=== PATIENT | female | born 1985 | race Two or more races ===

== ENCOUNTER 2023-10-13 06:15 | Day surgery (SDC) | payer MEDICAID ==
[2023-10-11 14:31] LABS: Urine Epithelial Cast None Seen /hpf (<5)
[2023-10-11 14:41] LABS: Basophils # (auto) 0 10 ^3/uL (0-0.2); Basophils % (auto) 0.6 % (0.0-2.0); Eosinophils # (auto) 0.1 10 ^3/uL (0-0.8); Eosinophils % (auto) 1.8 % (0.0-7.0); Hemoglobin 11.8 g/dL (12.2-16.2); Lymphocytes # (auto) 1.5 10 ^3/uL (0.4-5.4); Lymphocytes % (auto) 29.3 % (10.0-50.0); Mean Corpuscular Hemoglobin 28.4 pg (28.0-32.0); Mean Corpuscular Hgb Conc. 33.8 g/dL (32.0-36.0); Monocytes # (auto) 0.4 10 ^3/uL (0-1.3); Monocytes % (auto) 8.4 % (0.0-12.0); Neutrophils # (auto) 3.2 10 ^3/uL (1.6-8.6); Neutrophils % (auto) 59.9 % (37.0-80.0); Red Blood Cells 4.17 10^6/uL (4.0-5.20); Red Cell Distribution Width 14.9 % (11.8-14.3); White Blood Cell 5.3 10^3/uL (4.4-10.8)
[2023-10-11 14:53] LABS: Urine Bacteria NONE SEEN /hpf (None Seen); Urine Blood Negative /uL (Negative); Urine Clarity HAZY (Clear); Urine Color Yellow (Yellow); Urine Mucus FEW (None Seen); Urine Protein, UAD Negative (Negative); Urine Urobilinogen Normal (Negative); Urine WBC 4 /hpf (0 - 5); Urine pH 6.5 (5.0-8.0)
[2023-10-11 14:59] LABS: INR 0.98 (0.9-1.15); Partial Thromboplastin Time 26.8 SEC (24.5-34.5); Prothrombin Time 10.3 sec (9.3-11.8)
[2023-10-11 15:21] LABS: Alanine Aminotransferase 74 U/L (7-40); Albumin 4.5 g/dL (3.2-4.8); Alkaline Phosphatase 56 U/L (46-116); Anion Gap 8 (5-15); Aspartate Aminotransferase 23 U/L (13-40); Blood Urea Nitrogen 7 mg/dL (9-23); Calcium 9.1 mg/dL (8.7-10.4); Carbon Dioxide 23 mmol/L (20-30); Chloride 108 mmol/L (98-107); Glucose 98 mg/dL (74-106); Potassium 3.8 mmol/L (3.5-5.1); Sodium 139 mmol/L (136-145)
[2023-10-11 15:22] LABS: Bilirubin, Total 0.3 mg/dL (0.2-1.0); Total Protein 7.3 g/dL (5.7-8.2)
[~2023-10-13] VITALS: Ht 160 cm; Wt 89.8 kg
[~2023-10-13 06:15] MED LIST: BIOTPOW17 XX; FERR1TAB36 PO
[2023-10-13] MEDS ORDERED: ceFAZolin 2 GM/D5W100ml 100 ML IV ONE (06:31)
[2023-10-13 08:37] VITALS: TEMP 97; O2SAT 99
[2023-10-13] MEDS ORDERED: MIDAZOLAM HCL 2MG/2ML 2ml VIAL (1mg/ml) ONE (08:37)
[2023-10-13] MEDS ORDERED: LIDOCAINE 2% (LOCAL ANESTH.) PF 5ml SDV ONE (08:37)
[2023-10-13] MEDS ORDERED: PROPOFOL 10 MG/ML 20 ML IV ONE (08:37)
[2023-10-13] MEDS ORDERED: IBUP-1456 PO (08:37)
[2023-10-13] MEDS ORDERED: KETOROLAC TROMETH 30 MG/ML 1ML VIAL ONE (08:37)
[2023-10-13] MEDS ORDERED: ONDANSETRON HCL 4 MG/2 ML VIAL ONE (08:37)
[2023-10-13] MEDS ORDERED: DexAMETHasone SOD PHOS 10MG/1ML VIAL INJ ONE (08:37)
[2023-10-13] MEDS ORDERED: MEPERIDINE HCL (50 MG/ML) 1 ML VIAL ONE (08:37)
[2023-10-13] MEDS ORDERED: fentaNYL CITRATE 100 MCG/2 ML VL ONE (08:37)
[2023-10-13] MEDS ORDERED: LIDOCAINE W/ EPINEPHRINE 2% INJ 20ML VIAL ONE (08:37)
[2023-10-13] MEDS ORDERED: ePHEDrine SULFATE 50 MG/ML AMP ONE (08:37)
[2023-10-13] MEDS ORDERED: GLYCOPYRROLATE 0.2 MG/ML 1ML VIAL ONE (08:37)
[2023-10-13] MEDS ORDERED: HYDROmorphone HCL 2 MG/ML VL/or syr IV PRN (08:45)
[2023-10-13] MEDS ORDERED: ONDANSETRON HCL 4 MG/2 ML VIAL IV PRN (08:45)
[2023-10-13 09:30] VITALS: BP 153/92; PULSE 77; RESP 12; O2SAT 99
== END 2023-10-13 09:42 | disposition home or self-care (01) ==
LOC: SUR 06:15
PROVIDERS: ATTEND Obstetrics & Gynecology
DX: N92.0 Excessive and frequent menstruation with regular cycle (principal); N84.0 Polyp of corpus uteri; N90.89 Other specified noninflammatory disorders of vulva and perineum; E03.9 Hypothyroidism, unspecified; Z79.1 Long term (current) use of non-steroidal anti-inflammatories (NSAID); Z98.51 Tubal ligation status; Z98.890 Other specified postprocedural states
CPT/HCPCS: 11200; 36415; 58563; 80053; 81001; 81025; 84702; 85025; 85610; 85730; 86850; 86900; 86901; 88305; J1100; J1885; J2001; J2175; J2250; J2405; J2704; J3010

== ENCOUNTER → 2024-11-20 | Outpatient (CLI) | payer MEDICAID ==
[~2024-11-20] MED LIST changes: +IBUP-1456 PO
[2024-11-20 08:57] LABS: Urine Bacteria None Seen /hpf (None Seen)
[2024-11-20 10:13] LABS: Basophils # (auto) 0 10 ^3/uL (0-0.2); Basophils % (auto) 0.4 % (0.0-2.0); Eosinophils # (auto) 0.1 10 ^3/uL (0-0.8); Eosinophils % (auto) 1.8 % (0.0-7.0); Hematocrit 39.2 % (36.0-46.0); Hemoglobin 13.1 g/dL (12.2-16.2); Lymphocytes # (auto) 1.2 10 ^3/uL (0.4-5.4); Lymphocytes % (auto) 22.7 % (10.0-50.0); Mean Corpuscular Hemoglobin 28.6 pg (28.0-32.0); Mean Corpuscular Hgb Conc. 33.3 g/dL (32.0-36.0); Mean Corpuscular Volume 85.8 fL (80.0-100.0); Monocytes # (auto) 0.4 10 ^3/uL (0-1.3); Neutrophils # (auto) 3.7 10 ^3/uL (1.6-8.6); Neutrophils % (auto) 68.1 % (37.0-80.0); Nucleated Red Blood Cells % 0.1 %; Platelet Count (auto) 216 10^3/uL (140-450); Red Blood Cells 4.57 10^6/uL (4.0-5.20); Red Cell Distribution Width 14.2 % (11.8-14.3); White Blood Cell 5.5 10^3/uL (4.4-10.8)
[2024-11-20 10:30] LABS: Urine Blood Negative /uL (Negative); Urine Clarity Turbid (Clear); Urine Color Yellow (Yellow); Urine Mucus FEW (None Seen); Urine Protein, UAD Negative (Negative); Urine Specific Gravity 1.024 (1.001-1.035); Urine Squamous Epithelial Cell MOD /hpf (<5); Urine Urobilinogen Normal (Negative); Urine WBC 1 /HPF (0-5)
[2024-11-20 10:39] LABS: Albumin 4.7 g/dL (3.2-4.8); Alkaline Phosphatase 67 U/L (46-116); Anion Gap 9 (5-15); Aspartate Aminotransferase 31 U/L (13-40); BUN/Creatinine Ratio 7.9 (10.0-20.0); Carbon Dioxide 24 mmol/L (20-31); Chloride 106 mmol/L (98-107); Cholesterol 170 mg/dL (< 200); HDL Cholesterol 48 mg/dL (40-59); Potassium 4.1 mmol/L (3.5-5.1); Sodium 139 mmol/L (136-145); Triglycerides 118 mg/dL (< 150)
[2024-11-20 10:40] LABS: Bilirubin, Total 0.4 mg/dL (0.2-1.0); Total Protein 7.4 g/dL (5.7-8.2)
[2024-11-20 10:59] LABS: Alanine Aminotransferase 63 U/L (7-40); Blood Urea Nitrogen 7 mg/dL (9-23); Glucose 112 mg/dL (74-106); LDL Cholesterol 113 mg/dL (< 100)
[2024-11-21 10:17] LABS: Hepatitis B Core Total AB Negative (Negative)
[2024-11-21 11:58] LABS: Hepatitis A Total Antibody Positive (Negative); Hepatitis B Surface Antibody Positive (Negative)
[2024-11-21 11:59] LABS: Hepatitis B Surface Antigen Negative (Negative); Hepatitis C Antibody Negative (Negative)
[2024-11-22 06:07] LABS: Chlamydia Trachomatis, NAA Negative (Negative); Neisseria gonorrhoeae, NAA Negative (Negative)
== END | disposition home or self-care (01) ==
LOC: LAB 08:42
PROVIDERS: ATTEND Licensed Practical Nurse
DX: Z13.6 Encounter for screening for cardiovascular disorders (principal); Z13.220 Encounter for screening for lipoid disorders; Z13.29 Encounter for screening for other suspected endocrine disorder; E55.9 Vitamin D deficiency, unspecified
CPT/HCPCS: 36415; 80053; 80061; 81001; 82306; 83036; 84443; 85025; 86703; 86704; 86706; 86708; 86803; 87340